=== PATIENT | male | born 1995 | race African-American/Black ===

== ENCOUNTER 2023-02-26 23:59 | Emergency (ER) | payer BC, SELFPAY ==
--- NOTE | ~2023-02-26 | CT_ITS ---
Non-contrast CT scan of the Abdomen and Pelvis Clinical indication: Abdominal pain Technique: 2.5 mm axial scans were obtained through the abdomen and pelvis without intravenous or or al contrast. Dose reduction technique was used on this scan by utilizing automated exposure control a nd iterative reconstruction technique. The dose-length product (DLP) was 324.23 mGy-cm. Findings: Images through the lung bases reveal no abnormalities. There is no evidence of renal or ureteral calculi. The kidneys and the ureters are nondilated. The liver, spleen, pancreas, gallbladder, and adrenals appear normal. There is no aortic aneurysm. There is no evidence of bowel obstruction. Images through the pelvis were performed. There is no evidence of ascites or lymphadenopathy. Urinary bladder unremarkable. No pelvic mass seen. Impression: Unremarkable exam. Reviewed, dictated and finalized at [facility]. Impression: Unremarkable exam.
[2023-02-27 00:15] VITALS: BP 116/62; PULSE 70; RESP 14; TEMP 36.4; O2SAT 98
[2023-02-27 00:29] LABS: Basophils Percent Auto 0.6 % (0.2-1.2); Eosinophils Absolute Auto 0.2 K/mm3 (0-0.3); Eosinophils Percent Auto 4.4 % (0-4.4); Hematocrit 40.5 % (42.0-52.0); Hemoglobin 13.8 g/dL (14.0-18.0); Immature Granulocyte Absolute 0.01 K/mm3 (0.00-0.031); Immature Granulocyte Percent A 0.2 % (0-0.5); Lymphocytes Absolute Auto 2.17 K/mm3 (0.9-3.2); Mean Corpuscular HGB Conc 34.1 g/dl (32-36); Mean Corpuscular Hemoglobin 31.9 pg (26-34); Mean Corpuscular Volume 93.5 fl (80-100); Monocytes Absolute Auto 0.5 K/mm3 (0.1-0.6); Monocytes Percent Auto 8.3 % (2.6-8.5); Neutrophils Absolute Auto 2.5 K/mm3 (1.3-6.7); Neutrophils Percent Auto 46.5 % (45.5-73.1); Platelet Count Result 253 k/mm3 (150-375); Red Blood Count 4.33 M/mm3 (4.6-6.20); Red Cell Distribution Width 12.5 % (11.5-14.5); White Blood Count 5.4 K/mm3 (4.5-10.0)
[2023-02-27 00:41] LABS: Alanine Aminotransferase 32 U/L (6-50); Albumin Level 4.4 g/dL (3.5-5.1); Alkaline Phosphatase 66 U/L (38-126); Anion Gap 9 mmol/L (8-16); Aspartate Amino Transferase 37 U/L (17-59); Bilirubin,Total 0.4 mg/dL (0.2-1.3); Blood Urea Nitrogen 9 mg/dL (9-20); Calcium 9.2 mg/dL (8.4-10.2); Carbon Dioxide 26 mmol/L (22-30); Chloride 101 mmol/L (98-107); Estimated CRCL calculation 110 ml/min; Estimated Glomerular Filt Rate > 60; Glucose 99 mg/dL (65-110); Lipase 97 U/L (23-300); Sodium 136 mmol/L (137-145)
[2023-02-27 03:52] VITALS: BP 113/66; PULSE 62; RESP 14; O2SAT 99
[2023-02-27 04:12] LABS: Appearance Urine Clear (Clear); Bilirubin Urine Negative (Negative); Blood Urine Negative (Negative); Color Urine Yellow (Yellow); Glucose Urine UA Negative (Negative); Ketones Urine Negative (Negative); Leukocyte Esterase Ur Negative LEU/UL (Negative); Nitrate Urine Negative (Negative); Protein Urine Negative (Negative); Specific Grav Ur 1.009 (1.001-1.035); pH Urine 6.5 (5.0-9.0)
[2023-02-27 04:27] LABS: Add Urine Microscopic? NO
[2023-02-27 05:45] VITALS: BP 100/55; PULSE 55; RESP 16; O2SAT 98
--- NOTE | 2023-02-27 07:27 | ED.GENADULT ---
HPI - General Adult General Chief complaint: Abdominal Pain Stated complaint: abd pain Time Seen by Provider: 02/27/23 03:15 History of Present Illness HPI narrative: Patient a 27-year-old gentleman who presents emergency department chief complaint of abdominal pain. Patient reports that for some time has been having discomfort in his abdomen patient also incidentally reports that he is homeless 2. The patient reports the pain is not improved by anything reports its not worsened medically. The patient denies vomiting denies fever denies diarrhea. Related Data Allergies Allergy/AdvReac Type Severity Reaction Status Date / Time ibuprofen Allergy Swelling Verified 02/27/23 04:02 Review of Systems Review of Systems: A 10 system review of systems was completed on the patient and is negative except for what is stated in the HPI. Nursing and ancillary documentation was reviewed. Exam Narrative: GENERAL: Well-appearing, well-nourished, and in no acute distress. HEAD: Normocephalic, atraumatic. EYES: PERRLA and EOMI. ENT: Nares clear, no rhinorrhea or epistaxis. Mucous membranes moist. NECK: Supple. CHEST: Clear to auscultation. No respiratory distress. HEART: Regular rate and rhythm. No murmur heard. Normal peripheral pulses. ABDOMEN: Soft, diffuse mild tenderness, nondistended, normal active bowel sounds. EXTREMITIES: Normal range of motion. No edema. SKIN: Warm, dry, no rash. NEURO: No focal deficits. Alert and oriented x3. PSYCH: Normal mood and affect. Course Vital Signs Vital signs: Vital Signs Temperature 36.4 C 02/27/23 00:15 Pulse Rate 70 02/27/23 00:15 Respiratory Rate 14 02/27/23 00:15 Blood Pressure 116/62 02/27/23 00:15 Pulse Oximetry 98 02/27/23 00:15 Oxygen Delivery Room Air 02/27/23 00:15 Temperature 36.4 C 02/27/23 00:15 Pulse Rate 55 L 02/27/23 05:45 Respiratory Rate 16 02/27/23 05:45 Blood Pressure 100/55 L 02/27/23 05:45 Pulse Oximetry 98 02/27/23 05:45 Oxygen Delivery Room Air 02/27/23 03:52 Medical Decision Making Vital Signs Vital Signs: Vital Signs Temperature 36.4 C 02/27/23 00:15 Pulse Rate 70 02/27/23 00:15 Respiratory Rate 14 02/27/23 00:15 Blood Pressure 116/62 02/27/23 00:15 Pulse Oximetry 98 02/27/23 00:15 Oxygen Delivery Room Air 02/27/23 00:15 Temperature 36.4 C 02/27/23 00:15 Pulse Rate 55 L 02/27/23 05:45 Respiratory Rate 16 02/27/23 05:45 Blood Pressure 100/55 L 02/27/23 05:45 Pulse Oximetry 98 02/27/23 05:45 Oxygen Delivery Room Air 02/27/23 03:52 Lab Data 02/27/23 00:21 02/27/23 00:21 Labs: Lab Results 02/27/23 02/27/23 Range/Units 00:21 03:58 WBC 5.4 (4.5-10.0) K/mm3 RBC 4.33 L (4.6-6.20) M/mm3 Hgb 13.8 L (14.0-18.0) g/dL Hct 40.5 L (42.0-52.0) % MCV 93.5 (80-100) fl MCH 31.9 (26-34) pg MCHC 34.1 (32-36) g/dl RDW 12.5 (11.5-14.5) % Plt Count 253 (150-375) k/mm3 MPV 9.0 (7.4-10.4) fl Immature Gran % (Auto) 0.2 (0-0.5) % Neut % (Auto) 46.5 (45.5-73.1) % Lymph % (Auto) 40.0 (18.3-44.2) % Wheeler % (Auto) 8.3 (2.6-8.5) % Eos % (Auto) 4.4 (0-4.4) % Baso % (Auto) 0.6 (0.2-1.2) % Lymph # (Auto) 2.17 (0.9-3.2) K/mm3 Wheeler # (Auto) 0.5 (0.1-0.6) K/mm3 Eos # (Auto) 0.2 (0-0.3) K/mm3 Baso # (Auto) 0.0 (0.0-0.1) K/mm3 Abs Immat Gran (auto) 0.01 (0.00-0.031) K/mm3 Absolute Neuts (auto) 2.5 (1.3-6.7) K/mm3 Absolute Nucleated RBC 0.0 (0.0-0.012) K/mm3 Nucleated RBC % 0.0 (0.0-0.2) % Sodium 136 L (137-145) mmol/L Potassium 4.0 (3.4-5.0) mmol/L Chloride 101 (98-107) mmol/L Carbon Dioxide 26 (22-30) mmol/L Anion Gap 9 (8-16) mmol/L BUN 9 (9-20) mg/dL Creatinine 0.90 (0.7-1.3) mg/dL Estim Creat Clear Calc 110 ml/min Estimated GFR > 60 (59 - ) Glucose 99 (65-110) mg/dL Calcium 9.2 (8.4-10.2) mg/dL Total
[2023-02-27 07:49] VITALS: BP 118/68; PULSE 74; RESP 16; TEMP 36.8; O2SAT 100
== END 2023-02-27 07:52 | disposition home or self-care (01) ==
PROVIDERS: Emergency Provider Emergency Medicine
DX: R10.9 Unspecified abdominal pain (principal); Z59.00 Homelessness unspecified
CPT/HCPCS: 36415; 74176; 80053; 81003; 83690; 85025; 99284